=== PATIENT | male | born 1990 | race Asian ===

== ENCOUNTER 2021-07-07 21:48 | Emergency (ER) | payer OTHER ==
--- NOTE | 2021-07-07 23:01 | ED Physician Documentation ---
PD HPI GI BLEED - Stated complaint Stated Complaint: BLOOD IN STOOL - Chief complaint Chief Complaint: Abd Pain - History obtained from History obtained from: Patient - History of Present Illness Timing - onset: How many hours ago (2), Today Timing - details: Abrupt onset, Still present Associated symptoms: BRBPR (after a formed but not overly firm bowel movement.), Abdominal pain (pressure and cramps LLQ for an hour or so, decreased but still pressure feeling.) Contributing factors: Other (he states has had 6 months or more of irregular stools with diarrhea/soft ranging to firm.). No: Sick contact, Bad food, Travel Similar symptoms before: Has not had sx before Recently seen: Not recently seen Review of Systems Constitutional: denies: Fever, Chills Nose: denies: Rhinorrhea / runny nose, Congestion Throat: denies: Sore throat Respiratory: denies: Cough GI: reports: Abdominal Pain (intermittent cramping and pressure with irregular stools for months.) : denies: Dysuria, Frequency Endocrine: denies: Weight loss, Weight gain PD PAST MEDICAL HISTORY - Past Medical History Past Medical History: No Cardiovascular: None Respiratory: None Neuro: None Endocrine/Autoimmune: None GI: None : None HEENT: None Psych: None Musculoskeletal: None Derm: None - Past Surgical History Past Surgical History: No - Present Medications Home Medications: Ambulatory Orders Medication Instructions Recorded Confirmed Psyllium Husk [Fiber] 0.52 gm PO DAILY 30 Days #30 cap 07/08/21 - Allergies Allergies/Adverse Reactions: Allergies Allergy/AdvReac Type Severity Reaction Status Date / Time amoxicillin Allergy Unknown Verified 07/07/21 21:57 Fish Containing Products Allergy Unknown Verified 07/07/21 21:57 - Social History Does the pt smoke?: No Smoking Status: Never smoker Does the pt drink ETOH?: Yes Does the pt have substance abuse?: No - Immunizations Immunizations are current?: No Immunizations: TDAP current <10years - POLST Patient has POLST: No PD ED PE NORMAL - Vitals Vital signs reviewed: Yes - General General: Alert and oriented X 3, No acute distress, Well developed/nourished - Neck Neck: Supple, no meningeal sign, No adenopathy - Cardiac Cardiac: RRR, No murmur - Respiratory Respiratory: Clear bilaterally - Abdomen Abdomen: Normal bowel sounds, Soft, Non distended, No organomegaly, Other (mild tenderness LLQ without guarding nor percussion tenderness. Bowel sounds normal.) - Male Male : Deferred - Rectal Rectal: Other (external normal. Digital without blood on glove. There is mild inflammation at left wall suggesting internal hemorrhoid. Not tender. ) Results - Vitals Vitals: Vital Signs - 24 hr 07/07/21 07/08/21 07/08/21 21:54 00:00 00:46 Temperature 36.6 C 36.2 C L 36.2 C L Heart Rate 68 82 82 Respiratory 16 16 16 Rate Blood Pressure 149/94 H 144/93 H 144/93 H O2 Saturation 100 100 Oxygen O2 Source Room air - Labs Labs: Laboratory Tests 07/07/21 07/07/21 07/07/21 23:34 23:34 23:34 WBC 4.1 L RBC 4.81 Hgb 14.7 Hct 44.0 MCV 91.5 MCH 30.6 MCHC 33.4 RDW 11.5 L Plt Count 236 MPV 9.4 Neut # (Auto) 1.8 Lymph # (Auto) 1.6 [place] # (Auto) 0.5 Eos # (Auto) 0.2 Baso # (Auto) 0.0 Absolute Nucleated RBC 0.00 Nucleated RBC % 0.0 ESR 1 Sodium 137 Potassium 3.5 Chloride 100 L Carbon Dioxide 28 Anion Gap 9.0 BUN 22 H Creatinine 1.0 Estimated GFR (MDRD) 88 L Glucose 81 Calcium 9.1 Total Bilirubin 0.8 AST 17 ALT 14 Alkaline Phosphatase 51 Total Protein 7.3 Albumin 4.6 Globulin 2.7 Albumin/Globulin Ratio 1.7 Lipase 36 - Rads (name of study) abd/pelvic CT Radiology: Prelim report reviewed (no acute process), See rad report PD MEDICAL DECISION MAKING - ED course Complexity details: reviewed results (normal labs and ESR, normal CT. Less likely autoimmune such as crohns/UC. irregular stools and cramps could be malabsoprtive process (dietary). Still consider IBS. Presume BRBPR to be hemorrhoidal at this point. ), considered differential (firm stool then BRBPR, so consider internal hemorrhoid, but also has had LLQ cramping pain, and has mild tender there, so consider IBD/Crohns, tumors, masses, focal colitis. Has had irregular stools (varies diarrhea/soft to firm) for 6 months or so. ), d/w patient Departure - Departure Disposition: 01 Home, Self Care Clinical Impression: Lower abdominal pain, Rectal bleeding Condition: Stable Record reviewed to determine appropriate education?: Yes Instructions: ED Hematochezia Stable Follow-Up: JACKELYN Dillard [Provider Group] Esvin Sol MD [Provider Admit Priv/Credential] - Prescriptions: Psyllium Husk [Fiber] 0.52 gm PO DAILY 30 Days #30 cap Comments: Your blood count and chemistry panel including electrolytes and liver function tests are normal. An inflammation marker called the sed rate (ESR) was normal at 1 (with normal being up to 20). Your CT scan did not show any acute abnormality. No localized signs of wall inflammation (colitis). As such, it seems unlikely that you have an inflammatory bowel disease or immune disorder such as Crohn's disease. I presume your irregularity of stool may be just related to absorption or dietary factors. I would consider you adding a daily fiber capsule. This tends to help regulate the stools to the middle and not being too soft or hard. Stay well-hydrated and regular diet. The red blood after your bowel movement is most likely related to an internal hemorrhoid that opened as the stool passed by. No signs of an obvious bleeding cause from higher in the intestine based on your CT scan. That said, if you continue with any irregularity of your stools consistently or repeated episodes of bleeding, the true test to evaluate the lower intestine would be a colonoscopy. You could follow-up with your primary care for referral or I gave the name of one of the surgeons here in [place] for follow-up if need be. Otherwise no particular treatment needed for hemorrhoidal bleeding except the fiber and keeping medium soft stools. Discharge Date/Time: 07/08/21 00:48
[2021-07-07] MEDS ORDERED: IOVERSOL 320 100 ML VIAL IVP ONE (23:34)
[2021-07-07 23:42] LABS: EOSINOPHILS # (AUTO) 0.2 10^3/uL (0.0-0.7); EOSINOPHILS % (AUTO) 5.9 %; HGB - HEMOGLOBIN 14.7 g/dL (14.0-18.0); LYMPHOCYTES # (AUTO) 1.6 10^3/uL (1.5-3.5); LYMPHOCYTES % (AUTO) 38.3 %; MEAN CORPUSCULAR HEMOGLOBIN 30.6 pg (27.0-31.0); MEAN CORPUSCULAR HGB CONC 33.4 g/dL (32.0-36.0); MEAN CORPUSCULAR VOLUME 91.5 fL (80.0-94.0); MEAN PLATELET VOLUME 9.4 fL (7.4-11.4); MONOCYTES # (AUTO) 0.5 10^3/uL (0.0-1.0); NEUTROPHILS # (AUTO) 1.8 10^3/uL (1.5-6.6); NEUTROPHILS % (AUTO) 43.8 %; PLT - PLATELET COUNT 236 10^3/uL (130-450); RED BLOOD COUNT 4.81 10^6/uL (4.70-6.10); RED CELL DISTRIBUTION WIDTH 11.5 % (12.0-15.0); WHITE BLOOD COUNT 4.1 x10^3/uL (4.8-10.8)
[2021-07-07 23:52] LABS: ALBUMIN 4.6 g/dL (3.2-5.5); ALBUMIN/GLOBULIN RATIO 1.7 (1.0-2.2); BILIRUBIN,TOTAL 0.8 mg/dL (0.2-1.0); CALCIUM 9.1 mg/dL (8.5-10.3); POTASSIUM 3.5 mmol/L (3.5-5.0); TOTAL PROTEIN 7.3 g/dL (6.7-8.2)
[2021-07-08 00:08] VITALS: BP 144/93
[2021-07-08] MEDS ORDERED: IOVERSOL 320 100 ML VIAL IVP ONE (00:09)
--- NOTE | 2021-07-08 00:21 | CT Report ---
PROCEDURE: Abdomen/Pelvis W INDICATIONS: left lower abd cramping, and BRBPR today CONTRAST: IV CONTRAST: Optiray 320 ml: 100 PO CONTRAST: *NO PO CONTRAST TECHNIQUE: After the administration of weight appropriate dose of intravenous contrast, 5 mm thick sections acqu ired from the diaphragms to the symphysis. 5 mm thick coronal and sagittal reformats were acquired. For radiation dose reduction, the following was used: automated exposure control, adjustment of mA and/or kV according to patient size. COMPARISON: None. FINDINGS: Image quality: Excellent. ABDOMEN: Lung bases: Lung bases are clear. Heart size is normal. Solid organs: Liver and spleen are normal in size and enhancement. Gallbladder is unremarkable. Bi liary system is non dilated. Pancreas enhances normally. No right-sided adrenal nodule. There is a 2 .1 cm indeterminate left adrenal nodule. Kidneys demonstrate normal size and enhancement, without hyd ronephrosis. Peritoneum and bowel: Bowel loops demonstrate normal wall thickness and caliber. No free fluid or a ir. Normal appendix. Nodes and vessels: No retroperitoneal or mesenteric adenopathy by size criteria. Aorta and inferior vena cava are normal in size. Miscellaneous: No ventral hernias. PELVIS: Genitourinary: Bladder wall thickness is normal. Miscellaneous: No inguinal hernias or adenopathy. Bones: No suspicious bony lesions. No vertebral body compression fractures. IMPRESSION: 1. CT abdomen and pelvis without acute abnormalities. 2. Indeterminate 2.1 cm left adrenal nodule. Recommend outpatient abdominal CT or MRI using adrenal m ass protocol for further evaluation. 3. Normal appendix. Reviewed by: Lenny Rodrigez MD on 07/08/2021 12:19 AM PDT Approved by: Lenny Rodrigez MD on 07/08/2021 12:19 AM PDT Station ID: [id number]
== END 2021-07-08 00:48 | disposition home or self-care (01) ==
LOC: ED 21:48
DX: R10.32 Left lower quadrant pain (principal); K62.5 Hemorrhage of anus and rectum
CPT/HCPCS: 36415; 74177; 80053; 83690; 85025; 85651; 99282; 99284; Q9967

== ENCOUNTER 2021-12-21 12:00 | Emergency (ER) | payer OTHER ==
--- NOTE | 2021-12-21 12:31 | ED Physician Documentation ---
History of Present Illness - Stated complaint Stated Complaint: NUMBNESS IN FEET, CHILLS - Chief complaint Chief Complaint: General - History obtained from History obtained from: Patient - History of Present Illness Timing: How many days ago (for couple of days, has noted feeling of coldness and numbness in both feet, now developing into upper areas of legs and hands as well. Some feeling of lightheaded and general malaise. No decreased sensation nor strength noted. No back nor neck pain. No headache.) Quality: feeling of coolness in feet/legs. General malaise for few days. Feeling tired. Improved by: rest, elevated legs. Worsened by: noted it initially when standing prolonged and feels it with standing or inactive. No claudication nor pain with working out yesterday. Review of Systems Constitutional: reports: Fatigue. denies: Fever, Chills, Myalgias, Weight Loss Nose: denies: Rhinorrhea / runny nose, Congestion Throat: denies: Sore throat Respiratory: denies: Cough GI: denies: Abdominal Pain, Vomiting, Diarrhea Skin: denies: Rash, Lesions Musculoskeletal: reports: Extremity pain (some pain left shoulder after working out yesterday.). denies: Neck pain, Back pain Neurologic: denies: Focal weakness, Near syncope, Altered mental status, Headache PD PAST MEDICAL HISTORY - Past Medical History Past Medical History: No Cardiovascular: None Respiratory: None Neuro: None Endocrine/Autoimmune: None GI: None : None HEENT: None Psych: None Musculoskeletal: None Derm: None - Past Surgical History Past Surgical History: No - Present Medications Home Medications: Ambulatory Orders Medication Instructions Recorded Confirmed Psyllium Husk [Fiber] 0.52 gm PO DAILY 30 Days #30 cap 07/08/21 - Allergies Allergies/Adverse Reactions: Allergies Allergy/AdvReac Type Severity Reaction Status Date / Time amoxicillin Allergy Unknown Verified 07/07/21 21:57 Fish Containing Products Allergy Unknown Verified 07/07/21 21:57 - Social History Does the pt smoke?: No Smoking Status: Never smoker Does the pt drink ETOH?: Yes Does the pt have substance abuse?: No - Immunizations Immunizations are current?: No Immunizations: TDAP current <10years - POLST Patient has POLST: No PD ED PE NORMAL - Vitals Vital signs reviewed: Yes - General General: Alert and oriented X 3, No acute distress, Well developed/nourished - HEENT HEENT: Pharynx benign - Neck Neck: Supple, no meningeal sign, No adenopathy, Thyroid normal - Cardiac Cardiac: RRR, No murmur - Respiratory Respiratory: Clear bilaterally - Abdomen Abdomen: Soft, Non tender - Male Male : Deferred - Rectal Rectal: Deferred - Back Back: No CVA TTP, No spinal TTP - Derm Derm: Normal color, Warm and dry - Extremities Extremities: No tenderness to palpate, No edema, No calf tenderness / cord, Other (normal color and cap refill in feet/hands. Normal distal pulses. Normal knee reflexes. Good sensation to touch and pinprick bilaterally. Normal gait. ) - Neuro Neuro: Alert and oriented X 3, technical publications manager 2-12 intact, No motor deficit, No sensory deficit, Normal speech, Other Eye Opening: Spontaneous Motor: Obeys Commands Verbal: Oriented GCS Score: 15 Results - Vitals Vitals: Vital Signs - 24 hr 12/21/21 12/21/21 12:11 14:23 Temperature 36.4 C L 36.8 C Heart Rate 69 80 Respiratory 16 20 Rate Blood Pressure 125/76 120/70 O2 Saturation 99 100 Oxygen O2 Source Room air - Labs Labs: Laboratory Tests 12/21/21 12/21/21 12/21/21 13:01 13:01 13:01 WBC 3.9 L RBC 4.62 L Hgb 14.3 Hct 41.5 L MCV 89.8 MCH 31.0 MCHC 34.5 RDW 11.8 L Plt Count 222 MPV 9.7 Neut # (Auto) 2.0 Lymph # (Auto) 1.3 L [place] # (Auto) 0.4 Eos # (Auto) 0.2 Baso # (Auto) 0.0 Absolute Nucleated RBC 0.00 Nucleated RBC % 0.0 Sodium 137 Potassium 3.6 Chloride 102 Carbon Dioxide 25 Anion Gap 10.0 BUN 16 Creatinine 1.0 Estimated GFR (MDRD) 88 L Glucose 87 Calcium 8.8 Magnesium 1.9 Total Bilirubin 0.5 AST 21 ALT 18 Alkaline Phosphatase 49 C-Reactive Protein 1.0 Total Protein 6.9 Albumin 4.1 Globulin 2.8 Albumin/Globulin Ratio 1.5 Lipase 31 TSH 0.80 PD MEDICAL DECISION MAKING - ED course Complexity details: reviewed results (no acute lab abnormality. ), considered differential (gradual, bilateral feeling of coolness/numbness in legs/hands without back/head/neck pain. No weakness. Consider more metabolic/endocrine/systemic causes. Can check labs. ), d/w patient Departure - Departure Disposition: 01 Home, Self Care Clinical Impression: Sensation of cold in leg Condition: Stable Record reviewed to determine appropriate education?: Yes Follow-Up: JACKELYN Dillard [Provider Group] Comments: Your basic blood tests appear normal. It is unclear the cause of your feeling of coldness in the feet and hands. The circulation appears good in the extremities. Your vital signs are good. Be sure to stay well-hydrated and regular nutrition over the next several days to week at least. Follow-up with your primary care if not improved over the next several days to week or if other symptoms develop. Potential causes could be a mild illness or viral syndrome causing some fluctuation in circulation. Blood tests exclude anemia, diabetes, thyroid disorder, electrolyte problems or kidney abnormalities. Discharge Date/Time: 12/21/21 14:25
[2021-12-21 13:05] LABS: EOSINOPHILS # (AUTO) 0.2 10^3/uL (0.0-0.7); EOSINOPHILS % (AUTO) 5.4 %; HCT - HEMATOCRIT 41.5 % (42.0-52.0); HGB - HEMOGLOBIN 14.3 g/dL (14.0-18.0); LYMPHOCYTES # (AUTO) 1.3 10^3/uL (1.5-3.5); LYMPHOCYTES % (AUTO) 32.5 %; MEAN CORPUSCULAR HGB CONC 34.5 g/dL (32.0-36.0); MEAN CORPUSCULAR VOLUME 89.8 fL (80.0-94.0); MEAN PLATELET VOLUME 9.7 fL (7.4-11.4); MONOCYTES # (AUTO) 0.4 10^3/uL (0.0-1.0); MONOCYTES % (AUTO) 9.7 %; NEUTROPHILS % (AUTO) 51.1 %; PLT - PLATELET COUNT 222 10^3/uL (130-450); RED BLOOD COUNT 4.62 10^6/uL (4.70-6.10); RED CELL DISTRIBUTION WIDTH 11.8 % (12.0-15.0); WHITE BLOOD COUNT 3.9 x10^3/uL (4.8-10.8)
[2021-12-21 13:24] LABS: ALBUMIN 4.1 g/dL (3.2-5.5); ALBUMIN/GLOBULIN RATIO 1.5 (1.0-2.2); BILIRUBIN,TOTAL 0.5 mg/dL (0.2-1.0); CALCIUM 8.8 mg/dL (8.5-10.3); MAGNESIUM 1.9 mg/dL (1.7-2.8); POTASSIUM 3.6 mmol/L (3.5-5.0); TOTAL PROTEIN 6.9 g/dL (6.7-8.2)
[2021-12-21 14:25] VITALS: BP 120/70
== END 2021-12-21 14:25 | disposition home or self-care (01) ==
LOC: ED 12:00
DX: R29.898 Other symptoms and signs involving the musculoskeletal system (principal)
CPT/HCPCS: 36415; 80053; 83690; 83735; 84443; 85025; 86140; 99282; 99283